=== PATIENT | female | born 1965 | race Two or more races ===

== ENCOUNTER 2020-03-18 10:52 | Outpatient (CLI) | payer OTHER | END 2020-03-18 11:02 | disposition home or self-care (01) | LOC: SONOGRAMA 10:52 | PROVIDERS: ATTEND Pathology Anatomic Pathology & Clinical Pathology | DX: E04.2 Nontoxic multinodular goiter (principal) ==

== ENCOUNTER 2023-09-18 00:58 | Inpatient (IN) | payer OTHER ==
[~2023-09-18] VITALS: Ht 167.6 cm; Wt 78.0 kg
[2023-09-18] MEDS ORDERED: LEVOTHYROXINE25 MCG (01:35)
--- NOTE | 2023-09-18 01:36 | NUR ---
PTE ALERTA Y ORIENTADA X3, REFIERE DOLOR PELVICO LADO DERECHO. SE NAHEED SV Y SE UBICA
[2023-09-18] MEDS ORDERED: PROMETHAZINE HCL 50 MG/ML AMPUL IM STA (03:06)
[2023-09-18] MEDS ORDERED: MEPERIDINE HCL/PF 50 MG/ML VIAL IM STA (03:06)
[2023-09-18] MEDS ORDERED: RINGERS SOLUTION,LACTATED 1,000 ML IV STA (03:07)
[2023-09-18] MEDS ORDERED: PROMETHAZINE HCL 50 MG/ML AMPUL IM ONE (03:13)
[2023-09-18] MEDS ORDERED: BARIUM SULFATE 450 ML ORAL.SUSP PO ONE (03:19)
--- NOTE | 2023-09-18 03:20 | NUR ---
PTE FEMENINA EVALUADA POR . RN DAVY ORIENTA SOBRE ORDEN DE [place] REFIERE COMPRENDER. COLECTA MUESTRAS DE LABORATORIOS Y CANALIZA VENA BAJO MEDIDAS ASEPTICAS. ADMINISTRA MEDICAMENTOS,BAJO MEDIDAS ASEPTICAS. ENTREGA CONTRASTE ORAL Y ORIENT SOBRE INGESTA. NOTIFICA RADIOLOGIA PARA CT PENDIENTE.
[2023-09-18 03:55] LABS: HEMATOCRIT 35.8 % (36.0-45.00); HEMOGLOBIN 12.3 g/dL (12.0-15.00); MEAN CELL VOLUME 86.8 fL (80.00-100.00); MEAN CORPUSCULAR HEMOGLOBIN 29.8 pg (27.00-32.0); MEAN CORPUSCULAR HGB CONC 34.3 g/dl (32.0-36.0); PLATELET COUNT 202 K/uL (150-450); RED BLOOD COUNT 4.13 M/uL (4.00-6.00); RED CELL DISTRIBUTION WIDTH 13.2 % (11.5-14.5)
[2023-09-18 04:19] LABS: ALBUMIN 3.6 gm/dL (3.4-5.0); BILIRUBIN TOTAL 0.43 mg/dL (0.3-1.2); CALCIUM 8.9 mg/dL (8.5-10.1); CREATININE SERUM 0.76 mg/dL (0.55-1.02); GFR 77.63; GLOBULINA 3.5 G/DL (2.4-3.5); POTASSIUM 3.86 mEq/L (3.5-5.1); TOTAL PROTEIN 7.1 gm/dL (6.4-8.2)
[2023-09-18 04:55] LABS: INR < 0.93; PARTIAL THROMBOPLASTIN TIME 21.9 SECONDS (22.0-34.0); PROTHROMBIN TIME 9.5 SECONDS (9.0-11.5)
[2023-09-18 06:00] LABS: URINE APPEARANCE Clear; URINE BILIRRUBIN Negative (NEGATIVE); URINE BLOOD Negative; URINE COLOR Yellow; URINE GLUCOSE Negative (NEGATIVE); URINE KETONE Negative (NEGATIVE); URINE LEUKOCYTE Negative; URINE NITRATE Negative; URINE PROTEIN Negative (NEGATIVE); URINE UROBILINOGEN 0.2 E.U./dl
[2023-09-18 06:03] LABS: URINE BACTERIA 31.4 uL (0.0-1933); URINE EPITHELIAL CELLS 3.3 uL (0.0-38.8); URINE WBC 4.7 uL (0.0-23.2)
[2023-09-18 06:08] LABS: URINE CAST 0.15 uL (0.0-1.40); URINE RBC 0.3 uL (0.0-20.8)
--- NOTE | 2023-09-18 07:51 | NUR ---
SE RECIBE PTE FEMENINA DE 58 YRS ALERTA CONCIENTE Y TRANQUILA EN COMPANIA DE FAMILAIR. PTE EN ESPERA DE REALIZARSE ESTUDIO DE CT SCAN AL MOMENTO. SE MANTIENE HEATHER DE DOLOR Y SE OBSERVA POR CAMBIOS.
[2023-09-18] MEDS ORDERED: PIPERACILLIN/TAZOBACTAM SODIUM 3.375 GM in 0.9 % SODIUM CHLORIDE 100 ML IV STA (09:19)
[2023-09-18] MEDS ORDERED: PIPERACILLIN/TAZOBACTAM SODIUM 3.375 GM VIAL IV ONE ×2 (09:23→23:33)
[2023-09-18] MEDS ORDERED: 0.9 % SODIUM CHLORIDE 1,000 ML IV SCH (10:45)
[2023-09-18] MEDS ORDERED: ONDANSETRON HCL 4 MG in 0.9 % SODIUM CHLORIDE 50 ML IV SCH (10:46)
[2023-09-18] MEDS ORDERED: KETOROLAC TROMETHAMINE 30 MG VIAL IV STA (10:47)
[2023-09-18] MEDS ORDERED: FAMOTIDINE/PF 20 MG in 0.9 % SODIUM CHLORIDE 100 ML IV SCH (10:49)
[2023-09-18] MEDS ORDERED: MORPHINE SULFATE 2 MG/ML CARTRIDGE IV PRN (11:15)
[2023-09-18] MEDS ORDERED: KETOROLAC TROMETHAMINE 30 MG VIAL ONE (11:22)
[2023-09-18] MEDS ORDERED: FAMOtidine 200mg/20ml VIAL ONE (11:23)
[2023-09-18] MEDS ORDERED: ONDANSETRON HCL 2 MG/ML VIAL ONE (11:35)
[2023-09-18] MEDS ORDERED: PIPERACILLIN/TAZOBACTAM SODIUM 3.375 GM in 0.9 % SODIUM CHLORIDE 100 ML IV SCH (12:00)
[2023-09-18] MEDS ORDERED: ACETAMINOPHEN 500 MG GEL..CAP PO PRN (16:30)
[2023-09-18] MEDS ORDERED: SUGAMMADEX SODIUM 200 MG/2 ML VIAL IV ONE ×2 (22:36→22:45)
[2023-09-19] MEDS ORDERED: ONDANSETRON HCL 2 MG/ML VIAL ONE (00:07)
[2023-09-19] MEDS ORDERED: LEVOTHYROXINE SODIUM 50 MCG TABLET PO SCH (06:00)
== END 2023-09-19 18:48 | disposition home or self-care (01) | DRG 399 ==
LOC: ER 00:59 → SEC-K 11:15 → SURH 11:15
PROVIDERS: Surgery; ADMIT Internal Medicine; ATTEND Internal Medicine
PROC: BW21ZZZ Computerized Tomography (CT Scan) of Abdomen and Pelvis (ICD-10-PCS; 2023-09-18)
PROC: 0DTJ4ZZ Resection of Appendix, Percutaneous Endoscopic Approach (ICD-10-PCS; principal; 2023-09-18 20:45)
DX: K35.30 Acute appendicitis with localized peritonitis, without perforation or gangrene (principal); R10.31 Right lower quadrant pain; Z20.822 Contact with and (suspected) exposure to COVID-19